=== PATIENT | female | born 1990 | race Caucasian/White ===

== ENCOUNTER 2017-06-25 21:22 | Emergency (ER) | payer OTHER ==
[~2017-06-25] VITALS: Ht 157.5 cm; Wt 73.2 kg
[~2017-06-25 21:22] MED LIST: ACET-1256 PO; INSUINJ34 SC; NITR-5 PO; PRENTAB26 PO; SERT-234 PO
[2017-06-25 21:23] VITALS: TEMP 36.6; Ht 157.5 cm; Wt 73.2 kg
[2017-06-25] MEDS ORDERED: ONDANSETRON INJ 2 MG/ML 2 ML VIAL IV STA (21:30)
[2017-06-25] MEDS ORDERED: KETOROLAC TROMETHAMINE 30 MG/ML VIAL IV STA (21:30)
[2017-06-25] MEDS ORDERED: MoRPHine SULFATE 4 MG/ML 1 ML CARP\\VIAL IV STA ×2 (21:32→23:59)
[2017-06-25 21:55] LABS: BASO % 0.7 %; BASO ABS # 0.05 K/uL (0-0.2); EOS % 2.2 %; HEMATOCRIT 42.7 % (37-47); IG% 0.3 %; LYMPH % 35.6 %; LYMPH ABS # 2.58 K/uL (1.2-3.4); MEAN CELL VOLUME 74.8 fL (80-100); MEAN CORPUSCULAR HEMOGLOBIN 26.1 pg (25-34); MEAN CORPUSCULAR HGB CONC 34.9 g/dl (32-36); MEAN PLATELET VOLUME 9.9 fL (7.4-10.4); MONO % 5.1 %; NEUT % 56.1 %; PLATELET COUNT 241 K/uL (130-400); RED BLOOD COUNT 5.71 M/uL (4.2-5.4); WHITE BLOOD COUNT 7.24 K/uL (4.8-10.8)
[2017-06-25 22:06] LABS: MANUAL MICROSCOPIC REQUIRED? NO; REVIEW REQ? NO; URINE APPEARANCE CLOUDY (CLEAR); URINE BILIRUBIN NEG (NEG); URINE COLOR YELLOW; URINE EPITHELIAL CELL AUTO >30 /lpf (0-5); URINE NITRITE POS (NEG); URINE SPECIFIC GRAVITY 1.031 (1.000-1.030); UROBILINOGEN NEG (NEG); ZZUR CULT IF INDIC CLEAN CATCH YES
[2017-06-25] MEDS ORDERED: ATR25 PO (22:09)
[2017-06-25] MEDS ORDERED: ZLF/100 PO (22:09)
[2017-06-25] MEDS ORDERED: CYM30 PO (22:09)
[2017-06-25] MEDS ORDERED: MEDR150I19 INJ (22:09)
[2017-06-25] MEDS ORDERED: APDI PO (22:09)
[2017-06-25] MEDS ORDERED: IBUP-1050 PO (22:10)
[2017-06-25 22:11] LABS: BLOOD UREA NITROGEN 15 mg/dl (7-18); BUN/CREATININE RATIO 14.8 (10-20); CARBON DIOXIDE 20 mmol/L (21-32); CHLORIDE 104 mmol/L (98-107); CREATININE 1.01 mg/dl (0.60-1.20); GLUCOSE 301 mg/dl (70-99); POTASSIUM 3.7 mmol/L (3.5-5.1); SODIUM 135 mmol/L (136-145)
[2017-06-25 22:15] LABS: COMPLETE YES; MICROCYTOSIS PRESENT
[2017-06-25 22:17] LABS: ALKALINE PHOSPHATASE 124 U/L (45-117); ALT/SGPT 22 U/L (12-78); AST/SGOT 13 U/L (15-37)
[2017-06-25] MEDS ORDERED: CEFTRIAXONE SOD INJ 1 GM ADDVIAL IV STA (22:19)
[2017-06-25 22:24] VITALS: O2SAT 97
[2017-06-25] MEDS ORDERED: LACTATED RINGER'S 1000ML 1,000 ML IV STA (22:49)
[2017-06-26] MEDS ORDERED: PHENAZOPYRIDINE HOME PACK 200 MG VIAL PO ONE (00:45)
[2017-06-26] MEDS ORDERED: OXYCODONE IR HOME PACK PO ONE (00:45)
[2017-06-26] MEDS ORDERED: SEPTRA DS HOME PACK 1 EA VIAL PO ONE (00:45)
[2017-06-26] MEDS ORDERED: PHEN-876 PO (01:05)
[2017-06-26] MEDS ORDERED: SULF800T23 PO (01:05)
[2017-06-26] MEDS ORDERED: ONDANSETRON HOME PACK 4MG OD TAB PO ONE (01:15)
[2017-06-26 01:16] VITALS: BP 124/77; PULSE 110; O2SAT 98
--- NOTE | 2017-06-26 05:45 | EMERGENCY ROOM VISIT NOTE ---
History First contact with patient: 21:26 Chief Complaint: FLANK PAIN Stated Complaint: BACK PAIN History of Present Illness The patient is a 27 year old female who presents to the Emergency Room with complaints of sudden onset of right flank pain that raised her groin describes aching, ranging in severity 6 out of 10. Patient has a history kidney stones and renal failure. she also c/o urinary frequency, dysuria and hematuria. Patient states she's not suppose to take NSAIDs. Patient denies chest pain, dyspnea, fever, chills, vomiting, diarrhea, abdominal pain, cold symptoms. No injury to the area. Review of Systems See HPI for pertinent positives & negatives. A total of 10 systems reviewed and were otherwise negative. Past Medical/Surgical History Medical Problems: (1) BIPOL I, MOST RECENT EPISODE (OR CURRENT) MIXED, UNSPECIFIED (2) CALCULUS OF KIDNEY (3) DIAB W OTH SPEC MANIFEST, TYPE II OR UNSPEC TYPE, NOT UNCNTR (4) FAM HX-DIABETES MELLITUS (5) FAMILY HISTORY OF OTHER CARDIOVASCULAR DISEASES (6) Sinusitis, maxillary, chronic (7) TOBACCO USE DISORDER Family History Diabetes mellitus Heart disease Kidney disease Kidney stones Social History Smoking Status: Current Every Day Smoker Alcohol Use: none Drug Use: none Marital Status: single Housing Status: lives with family Occupation Status: employed Current/Historical Medications Scheduled Duloxetine HCl (Duloxetine HCl), 30 MG PO DAILY Hydroxyzine HCl (Hydroxyzine HCl), 25 MG PO Q8 Insulin Glulisine (Apidra Solostar), 12 UNITS PO TIDM Medroxyprogesterone Acetate (C (Medroxyprogesterone Aceta), INJ UD Phenazopyridine HCl (Pyridium), 200 MG PO TID Sertraline HCl (Sertraline HCl), 200 MG PO DAILY Sulfa/Trimethoprim (Bactrim Ds 800MG/160MG), 1 TAB PO BID Scheduled PRN Ibuprofen (Advil), 400 MG PO TID PRN for Headache or Pain Physical Exam Vital Signs Date Time Temp Pulse Resp B/P (MAP) Pulse Ox O2 Delivery O2 Flow Rate FiO2 06/26/17 01:16 110 17 124/77 98 06/26/17 00:08 85 17 128/87 97 06/25/17 22:58 104 19 127/86 98 06/25/17 22:31 114 06/25/17 22:24 110 16 124/93 98 12/10/17 22:24 97 Room Air 06/25/17 21:23 36.6 126 20 139/91 98 Room Air Physical Exam VITALS: Vitals are noted on the nurse's note and reviewed by myself. Vital signs stable. GENERAL:pleasant female, in no acute distress, nondiaphoretic, well-developed well-nourished. SKIN: The skin was without rashes, erythema, edema, or bruising. There is no tenting of the skin. Capillary reflex less than 2 seconds. HEAD: Normocephalic atraumatic. EARS: External auditory canals clear EYES: Pupils equal round and reactive to light and accommodation. Conjunctivae without injection, sclerae without icterus. Extraocular movements intact. NOSE: Patent, turbinates without inflammation or discharge. MOUTH: Mucous membranes moist. Tonsils are not enlarged. Pharynx without erythema or exudate. Uvula midline. Airway patent. Tongue does not deviate. NECK: Supple without nuchal rigidity. No lymphadenopathy. No thyromegaly. Cervical spine is nontender. No JVD. HEART: Regular rate and rhythm without murmurs gallops or rubs. LUNGS: Clear to auscultation bilaterally without wheezes, rales or rhonchi. No dullness to percussion. No retractions or accessory muscle use. ABDOMEN: Positive bowel sounds x 4. Normal tympanic percussion. Soft, nontender, without masses or organomegaly. Brown sign negative. No guarding or rebound tenderness. right CVA tenderness MUSCULOSKELETAL: No muscle atrophy, erythema, or edema noted. NEURO: Patient was alert and oriented to person place and time. Normal sensation to light and sharp touch. No focal neurological deficits. Medical Decision & Procedures Laboratory Results 06/25/17 21:45 Red Blood Count 5.71, Mean Corpuscular Volume 74.8, Mean Corpuscular Hemoglobin 26.1, Mean Corpuscular Hemoglobin Concent 34.9, Mean Platelet Volume 9.9, Neutrophils (%) (Auto) 56.1, Lymphocytes (%) (Auto) 35.6, Monocytes (%) (Auto) 5.1, Eosinophils (%) (Auto) 2.2, Basophils (%) (Auto) 0.7, Neutrophils # (Auto) 4.06, Lymphocytes # (Auto) 2.58, Monocytes # (Auto) 0.37, Eosinophils # (Auto) 0.16, Basophils # (Auto) 0.05 06/25/17 21:45 Test 06/25/17 21:45 White Blood Count 7.24 K/uL (4.8-10.8) Red Blood Count 5.71 M/uL (4.2-5.4) Hemoglobin 14.9 g/dL (12.0-16.0) Hematocrit 42.7 % (37-47) Mean Corpuscular Volume 74.8 fL (80-100) Mean Corpuscular Hemoglobin 26.1 pg (25-34) Mean Corpuscular Hemoglobin Concent 34.9 g/dl (32-36) Platelet Count 241 K/uL (130-400) Mean Platelet Volume 9.9 fL (7.4-10.4) Neutrophils (%) (Auto) 56.1 % Lymphocytes (%) (Auto) 35.6 % Monocytes (%) (Auto) 5.1 % Eosinophils (%) (Auto) 2.2 % Basophils (%) (Auto) 0.7 % Neutrophils # (Auto) 4.06 K/uL (1.4-6.5) Lymphocytes # (Auto) 2.58 K/uL (1.2-3.4) Monocytes # (Auto) 0.37 K/uL (0.11-0.59) Eosinophils # (Auto) 0.16 K/uL (0-0.5) Basophils # (Auto) 0.05 K/uL (0-0.2) RDW Standard Deviation 40.3 fL (36.4-46.3) RDW Coefficient of Variation 14.9 % (11.5-14.5) Immature Granulocyte % (Auto) 0.3 % Immature Granulocyte # (Auto) 0.02 K/uL (0.00-0.02) Microcytosis PRESENT Urine Color YELLOW Urine Appearance CLOUDY (CLEAR) Urine pH 5.0 (4.5-7.5) Urine Specific [place] 1.031 (1.000-1.030) Urine Protein 2+ (NEG) Urine Glucose (UA) 3+ (NEG) Urine Ketones NEG (NEG) Urine Occult Blood 3+ (NEG) Urine Nitrite POS (NEG) Urine Bilirubin NEG (NEG) Urine Urobilinogen NEG (NEG) Urine Leukocyte Esterase SMALL (NEG) Urine WBC (Auto) >30 /hpf (0-5) Urine RBC (Auto) >30 /hpf (0-4) Urine Hyaline Casts (Auto) 1-5 /lpf (0-5) Urine Epithelial Cells (Auto) >30 /lpf (0-5) Urine Bacteria (Auto) 4+ (NEG) Urine Test NEG (NEG) Anion Gap 11.0 mmol/L (3-11) Est Creatinine Clear Calc Drug Dose 77.7 ml/min Estimated GFR () 87.7 Estimated GFR (Non- 75.7 BUN/Creatinine Ratio 14.8 (10-20) Calcium Level 9.0 mg/dl (8.5-10.1) Total Bilirubin 0.2 mg/dl (0.2-1) Direct Bilirubin < 0.1 mg/dl (0-0.2) Aspartate Amino Transf (AST/SGOT) 13 U/L (15-37) Alanine Aminotransferase (ALT/SGPT) 22 U/L (12-78) Alkaline Phosphatase 124 U/L (45-117) Total Protein 8.0 gm/dl (6.4-8.2) Albumin 3.8 gm/dl (3.4-5.0) Beta-Hydroxybutyric Acid 4.60 mg/dL (0.2-2.81) Medications Administered Medications (Trade) Dose Ordered Sig/Unique Route Start Time Stop Time Status Last Admin Dose Admin Ondansetron HCl (Zofran Inj) 4 mg NOW STAT IV 06/25/17 21:30 06/25/17 21:32 DC 06/25/17 22:19 4 MG Morphine Sulfate (MoRPHine SULFATE INJ) 4 mg NOW STAT IV 06/25/17 21:32 06/25/17 21:33 DC 06/25/17 22:18 4 MG Ceftriaxone Sodium (Rocephin Inj) 1 gm NOW STAT IV 06/25/17 22:19 06/25/17 22:20 DC 06/25/17 23:04 1 GM Lactated Ringer's 1,000 ml @ 0 mls/hr Q0M STAT IV 06/25/17 22:49 06/25/17 22:50 DC 06/25/17 23:58 125 MLS/HR Morphine Sulfate (MoRPHine SULFATE INJ) 4 mg NOW STAT IV 06/25/17 23:59 06/26/17 00:00 DC 06/26/17 00:05 4 MG Phenazopyridine HCl (Phenazopyridine HCl 200MG Home Pack) 1 homepack UD ONCE PO 06/26/17 00:45 06/26/17 00:46 DC 06/26/17 01:14 1 HOMEPACK Trimethoprim/ Sulfamethoxazole (Sulfameth/ Trimeth Ds 800/ 160MG Home Pack) 1 homepack UD ONCE PO 06/26/17 00:45 06/26/17 00:46 DC 06/26/17 01:14 1 HOMEPACK Oxycodone HCl (Roxicodone Immediate Rel 5MG Home Pack) 1 homepack UD ONCE PO 06/26/17 00:45 06/26/17 00:46 DC 06/26/17 01:14 1 HOMEPACK Ondansetron HCl (ZOFRAN ODT 4MG Home Pack) 1 homepack UD ONCE PO 06/26/17 01:15 06/26/17 01:16 DC 06/26/17 01:14 1 HOMEPACK ED Course Prior records/ancillary studies reviewed. Triage Nursing notes reviewed. Additional history obtained from the family. The patient's history was concerning for right flanke pain. Differential diagnosis: Etiologies such as renal colic, appendicitis, diverticulitis, mesenteric ischemia, aortic pathology, infections, inflammatory bowel disease, PUD, biliary pathology, UTI, as well as others were entertained. Physical examination findings: As above. ER treatment provided: Morphine, Zofran, Rocephin On reassessment the patient felt better. Diagnostic interpretation by me: The labs revealed no leukocytosis. Hyperglycemia without DKA. Urine concerning for infection and sent for culture. Imaging studies: USUS RENAL: The kidneys appear normal in size and echogenicity without hydronephrosis, evidence of renal stone or perinephric edema Bilateral ureteral jets are seen Spleen measures 12.4 cm Radiologist: Jaylen Choi M.D. It appears that the patient has pyelonephritis. She was offered admission and declined. She was started on antibiotics. She was advised to take medications as directed and drink plenty of fluids. She is advised follow-up with family care in a day or 2 or here in the ER sooner for high fevers, vomiting, worsening signs or symptoms or as needed. She is advised to monitor her blood sugars. By the evaluation outlined above emergent etiologies such as appendicitis, diverticulitis, mesenteric ischemia, aortic pathology, inflammatory bowel disease, PUD, biliary pathology, as well as others were deemed relatively unlikely. The pt informed about the findings as listed above. All questions were answered and pleased with the treatment. Return instructions were outlined and the patient was discharged in stable condition. Outpatient prescription management: Bactrim, Pyridium Referral: The patient was referred back to their primary care physician for follow-up in 2 to 3 days for a recheck of the current condition. case reviewed with my Attending The chart was completed utilizing [employer] voice recognition software. Grammatical errors, random word insertions, pronoun errors, and incomplete sentences are an occassional consequence of this system due to software limitations, ambient noise, and hardware issues. Any formal questions or concerns about the content, text, or information contained within the body of this dictation should be directly addressed to the physician child and youth program assistant for clarification. Medical Decision as above Medication Reconcilliation Current Medication List: was personally reviewed by me Blood Pressure Screening Patient's blood pressure: Normal blood pressure Impression Primary Impression: Pyelonephritis Additional Impression: Diabetes mellitus with hyperglycemia Departure Information Dispostion Home / Self-Care Condition GOOD Prescriptions Sulfa/Trimethoprim (Bactrim Ds 800MG/160MG) Tab 1 TAB PO BID for 7 Days, #14 TAB Prov: Rima Joyner PA-C 06/26/17 Phenazopyridine HCl (Pyridium) 200 Mg Tab 200 MG PO TID for 2 Days, #6 TAB Prov: Rima Joyner PA-C 06/26/17 Referrals Francine Rankin M.D. (PCP) Patient Instructions My [facility] Problem Qualifiers
--- NOTE | 2017-06-26 07:00 | DIAGNOSTIC IMAGING REPORT ---
(RENAL)RETROPERITON COMP HISTORY: Flank pain right flank, ? stone COMPARISON: 10/12/2014 FINDINGS: Right kidney: Maximum dimension 10.4 cm. No evidence for hydronephrosis. Normal corticomedullary differentiation and cortical thickness. Left kidney: Maximum dimension 9.7 cm. No evidence for hydronephrosis. Normal corticomedullary differentiation and cortical thickness. Bladder: No bladder wall thickening. The bilateral ureteral jets were identified. IMPRESSION: Normal renal ultrasound. Incidental note is made of slight prominence of the spleen at 12 cm The above report was generated using voice recognition software. It may contain grammatical, syntax or spelling errors. Electronically signed by: Herbert Parsons M.D. 06/26/2017 6:59 AM Dictated Date/Time: 06/26/2017 6:58 AM
[2017-06-27] MEDS ORDERED: CIPR1TAB10 PO (09:29)
--- NOTE | 2017-06-27 10:57 | Pharmacy Progress Note ---
ED Pharmacist Culture FollowUp Date of Service: Jun 27, 2017. Patient initially sent home with Bactrim and returned later the same day 06/26 and was admitted. Received 1x dose of rocephin and discharged 06/27 with prescription for ciprofloxacin 500 mg BID X 9 days which should cover the E. coli growing from the patient's urine culture.
== END 2017-06-26 01:16 | disposition home or self-care (01) ==
LOC: C.EDB 21:22 → C.EDA 06-26 01:16
DX: N12 Tubulo-interstitial nephritis, not specified as acute or chronic (principal); E11.65 Type 2 diabetes mellitus with hyperglycemia; F17.200 Nicotine dependence, unspecified, uncomplicated; Z87.442 Personal history of urinary calculi; Z83.3 Family history of diabetes mellitus; Z84.1 Family history of disorders of kidney and ureter

== ENCOUNTER 2017-06-26 22:47 | Observation (INO) | payer OTHER ==
[~2017-06-26] VITALS: Ht 157.5 cm; Wt 80.0 kg
[~2017-06-26 22:47] MED LIST changes: -ACET-1256 PO; +APDI PO; +ATR25 PO; +CYM30 PO; +IBUP-1050 PO; -INSUINJ34 SC; +MEDR150I19 INJ; -NITR-5 PO; +PHEN-876 PO; -PRENTAB26 PO; -SERT-234 PO; +SULF800T23 PO; +ZLF/100 PO
[2017-06-26] MEDS ORDERED: SODIUM CHLORIDE 0.9% 1000ML 1,000 ML IV STA (23:05)
[2017-06-26] MEDS ORDERED: HYDROmorphone INJ 1 MG/ML SYR IV STA (23:05)
[2017-06-26] MEDS ORDERED: ONDANSETRON INJ 2 MG/ML 2 ML VIAL IV STA (23:05)
[2017-06-26] MEDS ORDERED: CEFTRIAXONE SOD INJ 1 GM ADDVIAL IV STA (23:10)
--- NOTE | 2017-06-26 23:18 | EMERGENCY ROOM VISIT NOTE ---
History Report prepared by Sandy: Coco Mathews Under the Supervision of: Dr. Guido Tafoya M.D. First contact with patient: 22:58 Chief Complaint: FLANK PAIN Stated Complaint: KIDNEY INFECTION - REVISIT FROM YESTERDAY History of Present Illness The patient is a 27 year old female who presents to the Emergency Room with complaints of worsening flank pain starting yesterday. The patient states that she had a bad UTI a few months ago. She reports that she came to the ED yesterday for the pain. She states that she tried taking the Peridium with no relief. She complains of back pain, abdominal pain, and nausea. She currently rates her pain as an 8/10 in severity. The patient denies burning with urination and a rash. She notes that she hasn't checked her sugars today, but they were high last night. The patient notes a history of kidney stones and kidney failure. She notes that she was on dialysis in 2014 and the failure was from necrotizing fasciitis on her upper thigh. Source of History: patient Onset: yesterday Position: other (flank pain) Symptom Intensity: 8/10 Timing: worsening Associated Symptoms: + nausea, + abdominal pain, + back pain, No rash Note: The patient denies burning with urination. Review of Systems See HPI for pertinent positives & negatives. A total of 10 systems reviewed and were otherwise negative. Past Medical & Surgical Medical Problems: (1) BIPOL I, MOST RECENT EPISODE (OR CURRENT) MIXED, UNSPECIFIED (2) CALCULUS OF KIDNEY (3) DIAB W OTH SPEC MANIFEST, TYPE II OR UNSPEC TYPE, NOT UNCNTR (4) FAM HX-DIABETES MELLITUS (5) FAMILY HISTORY OF OTHER CARDIOVASCULAR DISEASES (6) Hx of necrotising fasciitis (7) Kidney failure (8) Kidney stones (9) Right-sided back pain (10) Sinusitis, maxillary, chronic (11) TOBACCO USE DISORDER Family History Diabetes mellitus Heart disease Kidney disease Kidney stones Social History Smoking Status: Current Every Day Smoker Alcohol Use: none Drug Use: none Marital Status: single Housing Status: lives with family Occupation Status: employed Current/Historical Medications Scheduled Duloxetine HCl (Duloxetine HCl), 30 MG PO DAILY Hydroxyzine HCl (Hydroxyzine HCl), 25 MG PO Q8 Insulin Glulisine (Apidra Solostar), 12 UNITS PO TIDM Medroxyprogesterone Acetate (C (Medroxyprogesterone Aceta), INJ UD Phenazopyridine HCl (Pyridium), 200 MG PO TID Sertraline HCl (Sertraline HCl), 200 MG PO DAILY Sulfa/Trimethoprim (Bactrim Ds 800MG/160MG), 1 TAB PO BID Scheduled PRN Ibuprofen (Advil), 400 MG PO TID PRN for Headache or Pain Allergies Coded Allergies: Tramadol (Verified Adverse Reaction, Mild, GI SYMPTOMS, 06/26/17) Erythromycin (Verified Adverse Reaction, Unknown, VOMITING, 06/26/17) Physical Exam Vital Signs Date Time Temp Pulse Resp B/P (MAP) Pulse Ox O2 Delivery O2 Flow Rate FiO2 06/27/17 01:17 Room Air 06/27/17 01:15 78 20 121/82 96 Room Air 06/26/17 23:57 93 22 130/70 96 Room Air 06/26/17 22:49 37.1 110 24 133/79 98 Room Air Physical Exam GENERAL: Patient is uncomfortable appearing and in moderate distress. Writhing on bed. HEENT: No acute trauma, normocephalic atraumatic, mucous membranes moist, no nasal congestion, no scleral icterus. NECK: No stridor, no adenopathy, no meningismus, trachea is midline. LUNGS: No dyspnea. Clear to auscultation and equal bilaterally. No wheeze, no rhonchi. HEART: Tachycardic rate and regular rhythm. No murmurs, rubs, gallops appreciated. ABDOMEN: Soft,diffuse tenderness over entire abdomen, no rebound, bowel sounds positive, no masses appreciated, no peritonitis. BACK: No midline tenderness, bilateral CVA tenderness to palpation EXTREMITIES: Normal motion all extremities, no cyanosis, no edema. NEUROLOGIC: Alert and oriented, no acute motor or sensory deficits, no focal weakness, cranial nerves grossly intact. SKIN: No rash, no jaundice, no diaphoresis. Medical Decision & Procedures ER Provider Diagnostic Interpretation: Radiology results and stated below per my review and radiologist interpretation: CT ABDOMEN & PELVIS Without Contrast: Nonobstructing left renal stone. No hydronephrosis or perinephric collections. Unremarkable appendix. No colitis or bowel obstruction. No radiodense gallstones or pancreatitis. Small nodule in the soft tissues of the back. Radiologist: Manal Schoellerman, M.D. Study ready at 23:59 and initial results transmitted at 00:23. Laboratory Results 06/26/17 23:10 Red Blood Count 5.60, Mean Corpuscular Volume 75.5, Mean Corpuscular Hemoglobin 26.4, Mean Corpuscular Hemoglobin Concent 35.0, Mean Platelet Volume 9.8, Neutrophils (%) (Auto) 54.2, Lymphocytes (%) (Auto) 35.4, Monocytes (%) (Auto) 6.3, Eosinophils (%) (Auto) 3.0, Basophils (%) (Auto) 0.7, Neutrophils # (Auto) 3.79, Lymphocytes # (Auto) 2.48, Monocytes # (Auto) 0.44, Eosinophils # (Auto) 0.21, Basophils # (Auto) 0.05 06/26/17 23:10 Test 06/26/17 23:10 06/26/17 23:12 06/26/17 23:19 06/26/17 23:22 White Blood Count 7.00 K/uL (4.8-10.8) Red Blood Count 5.60 M/uL (4.2-5.4) Hemoglobin 14.8 g/dL (12.0-16.0) Hematocrit 42.3 % (37-47) Mean Corpuscular Volume 75.5 fL (80-100) Mean Corpuscular Hemoglobin 26.4 pg (25-34) Mean Corpuscular Hemoglobin Concent 35.0 g/dl (32-36) Platelet Count 226 K/uL (130-400) Mean Platelet Volume 9.8 fL (7.4-10.4) Neutrophils (%) (Auto) 54.2 % Lymphocytes (%) (Auto) 35.4 % Monocytes (%) (Auto) 6.3 % Eosinophils (%) (Auto) 3.0 % Basophils (%) (Auto) 0.7 % Neutrophils # (Auto) 3.79 K/uL (1.4-6.5) Lymphocytes # (Auto) 2.48 K/uL (1.2-3.4) Monocytes # (Auto) 0.44 K/uL (0.11-0.59) Eosinophils # (Auto) 0.21 K/uL (0-0.5) Basophils # (Auto) 0.05 K/uL (0-0.2) RDW Standard Deviation 41.2 fL (36.4-46.3) RDW Coefficient of Variation 14.9 % (11.5-14.5) Immature Granulocyte % (Auto) 0.4 % Immature Granulocyte # (Auto) 0.03 K/uL (0.00-0.02) Prothrombin Time 9.4 SECONDS (9.0-12.0) Prothromb Time International Ratio 0.9 (0.9-1.1) Est Creatinine Clear Calc Drug Dose 69.1 ml/min Estimated GFR () 72.7 Estimated GFR (Non- 62.7 BUN/Creatinine Ratio 12.2 (10-20) Calcium Level 8.8 mg/dl (8.5-10.1) Magnesium Level 1.9 mg/dl (1.8-2.4) Total Bilirubin 0.2 mg/dl (0.2-1) Direct Bilirubin < 0.1 mg/dl (0-0.2) Aspartate Amino Transf (AST/SGOT) 8 U/L (15-37) Alanine Aminotransferase (ALT/SGPT) 22 U/L (12-78) Alkaline Phosphatase 154 U/L (45-117) Total Creatine Kinase 31 U/L (26-192) Creatine Kinase MB < 0.5 ng/ml (0.5-3.6) Creatine Kinase MB Ratio (0-3.0) Troponin I < 0.015 ng/ml (0-0.045) Total Protein 7.8 gm/dl (6.4-8.2) Albumin 3.6 gm/dl (3.4-5.0) Beta-Hydroxybutyric Acid 1.23 mg/dL (0.2-2.81) Procalcitonin < 0.05 ng/ml (0-0.5) Urine Color RED Urine Appearance CLOUDY (CLEAR) Urine pH 7.0 (4.5-7.5) Urine Specific [place] 1.027 (1.000-1.030) Urine Protein NEG (NEG) Urine Glucose (UA) 3+ (NEG) Urine Ketones NEG (NEG) Urine Occult Blood 3+ (NEG) Urine Nitrite NEG (NEG) Urine Bilirubin NEG (NEG) Urine Urobilinogen NEG (NEG) Urine Leukocyte Esterase TRACE (NEG) Urine WBC (Auto) 10-30 /hpf (0-5) Urine RBC (Auto) >30 /hpf (0-4) Urine Hyaline Casts (Auto) 1-5 /lpf (0-5) Urine Epithelial Cells (Auto) >30 /lpf (0-5) Urine Bacteria (Auto) NEG (NEG) Urine Test NEG (NEG) Bedside Lactic Acid Venous 1.62 mmol/L (0.90-1.70) Bedside Hemoglobin 13.6 g/dl (12.0-16.0) Bedside Hematocrit 40 % (37-47) Bedside Sodium 137 mEq/L (135-144) Bedside Potassium 4.1 mEq/L (3.3-5.0) Bedside Chloride 103 mEq/L (101-112) Bedside Total CO2 23 mEq/l (24-31) Anion Gap 17.0 mmol/L (16-25) Bedside Blood Urea Nitrogen 14 mg/dl (7-18) Bedside Creatinine 0.9 mg/dl (0.6-1.3) Bedside Glucose (other) 430 mg/dl (70-99) Bedside Ionized Calcium ([place]) 1.17 mmol/l (1.12-1.32) Laboratory results as reviewed by me. Medications Administered Medications (Trade) Dose Ordered Sig/Unique Route Start Time Stop Time Status Last Admin Dose Admin Sodium Chloride 1,000 ml @ 999 mls/hr Q1H1M STAT IV 06/26/17 23:05 06/27/17 00:05 DC 06/26/17 23:28 999 MLS/HR Hydromorphone HCl (Dilaudid Inj) 1 mg NOW STAT IV 06/26/17 23:05 06/26/17 23:07 DC 06/26/17 23:30 1 MG Ondansetron HCl (Zofran Inj) 4 mg NOW STAT IV 06/26/17 23:05 06/26/17 23:07 DC 06/26/17 23:28 4 MG Ceftriaxone Sodium (Rocephin Inj) 1 gm NOW STAT IV 06/26/17 23:10 06/26/17 23:11 DC 06/26/17 23:38 1 GM Insulin Human Regular (novoLIN-R U-100 PER UNIT) 6 units NOW STAT IV 06/26/17 23:37 06/26/17 23:38 DC 06/26/17 23:57 6 UNITS ECG Indication: back/shoulder pain Rate (beats per minute): 91 Rhythm: normal sinus Findings: no acute ischemic change, no ectopy ED Course 2300: The patient was evaluated in room B9. A complete history and physical exam was performed. Review of the patient's chart reveals that on May of 2016 she had an Ecolid UTI that was Bactrim and Ampicillin resistant, but otherwise pansensitive. 2305: Ordered Zofran Inj 4 mg IV, Dilaudid Inj 1 mg IV, NSS 1000 ml @ 999 mls/ hr IV. 2310: Ordered Rocephin Inj 1 gm IV. 2337: Ordered Insulin Human Regular 6 units IV. 0004: I reevaluated the patient and she is feeling better. She is agreeable to admission. 0025: Discussed the patient's case with Dr. Rogers. The patient will be evaluated for further treatment and disposition. Medical Decision Differential: UTI, Urethritis, Pyelonephritis, STI, Herpetic, Vaginitis, Hyperglycemia, Yeast, PID, Cystitis, Hemorrhagic Cystitis, amongst other pathologies entertained. 27 yr old female with 2 days bilateral flank pain, urinary burning and fatigue. Seen yesterday diagnosed with pyelo and refused admission at that time. Uncontrolled DMI with previous septic shock, intubation from infections. Previous Ecoli UTI in last few years susceptible to Rocephin. Returns today with continued symptoms and now vomiting. BG continues to rise. Pain controlled with above. UA is clearing though Ucx already growing gram neg. Given Rocephin post cultures/lactic. She is not in dka. She is not septic shock and does not at this time meet sepsis criteria. Given brittle diabetic who is uncontrolled with UTI and second visit in 2 days for pyelo, will need to come in for management. Medication Reconcilliation Current Medication List: was personally reviewed by me Blood Pressure Screening Patient's blood pressure: Normal blood pressure Blood pressure disposition: Did not require urgent referral Consults Time Called: 18 Consulting Physician: Dr. Rogers Returned Call: 24 Discussed the patient's case with Dr. Rogers. The patient will be evaluated for further treatment and disposition. Impression Primary Impression: Pyelonephritis Additional Impressions: Hyperglycemia Failure of outpatient treatment Scribe Attestation The scribe's documentation has been prepared under my direction and personally reviewed by me in its entirety. I confirm that the note above accurately reflects all work, treatment, procedures, and medical decision making performed by me. Departure Information Dispostion Being Evaluated By Hospitalist Referrals No Doctor, Assigned (PCP) Patient Instructions My [facility] Problem Qualifiers
[2017-06-26 23:28] LABS: BASO % 0.7 %; BASO ABS # 0.05 K/uL (0-0.2); COMPLETE YES; HEMATOCRIT 42.3 % (37-47); IG% 0.4 %; LYMPH % 35.4 %; LYMPH ABS # 2.48 K/uL (1.2-3.4); MEAN CELL VOLUME 75.5 fL (80-100); MEAN CORPUSCULAR HEMOGLOBIN 26.4 pg (25-34); MEAN PLATELET VOLUME 9.8 fL (7.4-10.4); MONO % 6.3 %; NEUT % 54.2 %; PLATELET COUNT 226 K/uL (130-400)
[2017-06-26 23:35] LABS: ISTAT CREATININE 0.9 mg/dl (0.6-1.3); ISTAT HEMOGLOBIN 13.6 g/dl (12.0-16.0); ISTAT IONIZED CALCIUM 1.17 mmol/l (1.12-1.32)
[2017-06-26] MEDS ORDERED: NovoLIN-R INSULIN PER UNIT CHARGE IV STA (23:37)
[2017-06-26 23:41] LABS: INR 0.9 (0.9-1.1); PROTHROMBIN TIME (PATIENT) 9.4 SECONDS (9.0-12.0)
[2017-06-26 23:41] LABS: MANUAL MICROSCOPIC REQUIRED? NO; URINE APPEARANCE CLOUDY (CLEAR); URINE BILIRUBIN NEG (NEG); URINE COLOR RED; URINE EPITHELIAL CELL AUTO >30 /lpf (0-5); URINE NITRITE NEG (NEG); URINE SPECIFIC GRAVITY 1.027 (1.000-1.030); UROBILINOGEN NEG (NEG); ZZUR CULT IF INDIC CLEAN CATCH YES
[2017-06-27 00:12] LABS: ALKALINE PHOSPHATASE 154 U/L (45-117); ALT/SGPT 22 U/L (12-78); BLOOD UREA NITROGEN 14 mg/dl (7-18); BUN/CREATININE RATIO 12.2 (10-20); CALCIUM 8.8 mg/dl (8.5-10.1); CARBON DIOXIDE 23 mmol/L (21-32); CHLORIDE 103 mmol/L (98-107); CREATININE 1.18 mg/dl (0.60-1.20); GLUCOSE 433 mg/dl (70-99)
[2017-06-27 00:18] LABS: POTASSIUM 4.2 mmol/L (3.5-5.1); SODIUM 135 mmol/L (136-145)
[2017-06-27 00:31] LABS: AST/SGOT 8 U/L (15-37); BETA-HYDROXYBUTYRATE 1.23 mg/dL (0.2-2.81); MAGNESIUM 1.9 mg/dl (1.8-2.4)
[2017-06-27 01:17] VITALS: BMI 32.3
[2017-06-27] MEDS ORDERED: IBUPROFEN 200 MG TAB PO PRN (01:30)
[2017-06-27] MEDS ORDERED: ACETAMINOPHEN 325 MG TAB PO PRN (01:30)
[2017-06-27] MEDS ORDERED: POLYETHYLENE (MIRALAX) 17 GM PACK PO PRN (01:30)
[2017-06-27] MEDS ORDERED: ONDANSETRON INJ 2 MG/ML 2 ML VIAL IV PRN (01:30)
[2017-06-27] MEDS ORDERED: ALUMINUM/MAGNESIUM/SIMETH (MAALOX MAX) 30 ML UDC PO PRN (01:30)
[2017-06-27] MEDS ORDERED: ACETAMINOPHEN IV 100 ML IV PRN (01:30)
[2017-06-27] MEDS ORDERED: MAGNESIUM HYDROXIDE SUSP 30 ML UDC PO PRN (01:30)
[2017-06-27] MEDS ORDERED: ACETAMINOPHEN 1000 MG/100 ML IV IV ONE (01:33)
--- NOTE | 2017-06-27 01:48 | History and Physical ---
History & Physical Date & Time of Service: Jun 27, 2017 at 01:28 Chief Complaint: Kidney Infection - Revisit From Yesterday Primary Care Physician: No Doctor, Assigned History of Present Illness Source: patient, hospital records This is a 27 yo f with a history of bipolar and DMI that is presenting to us with worsening right sided flank pain. The patient was seen by ED yesterday as she was suffering from right sided flank pain and change in urine odour/ colour. She was evaluated and found to have a UTI and was d/c with Pyridium and Bactrim. Over the past 24 hours she has had intensifying right flank pain which extend to the right anterior abd. The pain is currently a 7/10 and sharp. Worse with any movement. She denies any dysuria or fever. During the last 24 hours she has not been checking her sugars and they were found to be elevated. Past Medical/Surgical History Medical Problems: (1) BIPOL I, MOST RECENT EPISODE (OR CURRENT) MIXED, UNSPECIFIED Status: Chronic (2) CALCULUS OF KIDNEY Status: Chronic (3) DIAB W OTH SPEC MANIFEST, TYPE II OR UNSPEC TYPE, NOT UNCNTR Status: Chronic (4) FAM HX-DIABETES MELLITUS Status: Chronic (5) FAMILY HISTORY OF OTHER CARDIOVASCULAR DISEASES Status: Chronic (6) Sinusitis, maxillary, chronic Status: Chronic (7) TOBACCO USE DISORDER Status: Chronic Family History Diabetes mellitus Heart disease Kidney disease Kidney stones Social History Smoking Status: Current Every Day Smoker Smokeless Tobacco Use: No Alcohol Use: socially Drug Use: none Marital Status: single Housing status: lives with family Occupational Status: employed Immunizations History of Influenza Vaccine: No History of Tetanus Vaccine?: Unknown History of Pneumococcal: No History of Hepatitis B Vaccine: Yes Multi-Drug Resistant Organisms History of MDRO: No Allergies Coded Allergies: Tramadol (Verified Adverse Reaction, Mild, GI SYMPTOMS, 06/26/17) Erythromycin (Verified Adverse Reaction, Unknown, VOMITING, 06/26/17) Home Medications Scheduled Duloxetine HCl (Duloxetine HCl), 30 MG PO DAILY Hydroxyzine HCl (Hydroxyzine HCl), 25 MG PO Q8 Insulin Glulisine (Apidra Solostar), 12 UNITS PO TIDM Medroxyprogesterone Acetate (C (Medroxyprogesterone Aceta), INJ UD Phenazopyridine HCl (Pyridium), 200 MG PO TID Sertraline HCl (Sertraline HCl), 200 MG PO DAILY Sulfa/Trimethoprim (Bactrim Ds 800MG/160MG), 1 TAB PO BID Scheduled PRN Ibuprofen (Advil), 400 MG PO TID PRN for Headache or Pain Review of Systems Constitutional: No fever, No chills, No sweats Eyes: No worsening of vision ENT: No hearing loss Respiratory: No cough, No sputum, No wheezing, No shortness of breath, No dyspnea on exertion, No dyspnea at rest Cardiovascular: No chest pain Abdomen: No pain, No nausea, No vomiting, No diarrhea, No constipation Musculoskeletal: + problem reported, No joint pain, No muscle pain Genitourinary - Female: No dysuria, No hematuria Neurologic: No weakness, No balance problems Psychiatric: No depression symptoms Endocrine: No fatigue Hematologic / Lymphatic: No abnormal bleeding/bruising Integumentary: No rash Physical Exam Vital Signs Date Time Temp Pulse Resp B/P (MAP) Pulse Ox O2 Delivery O2 Flow Rate FiO2 06/27/17 01:15 78 20 121/82 96 Room Air 06/26/17 23:57 93 22 130/70 96 Room Air 06/26/17 22:49 37.1 110 24 133/79 98 Room Air General Appearance: no apparent distress Head: normocephalic, atraumatic Eyes: normal inspection ENT: normal ENT inspection Neck: supple Respiratory/Chest: normal breath sounds, no respiratory distress, no accessory muscle use Cardiovascular: regular rate, rhythm, no murmur, normal peripheral pulses Abdomen/GI: normal bowel sounds, non tender, soft Back: normal inspection Neurologic/Psych: alert, normal mood/affect, oriented x 3 Skin: normal color, warm/dry, no rash Diagnostics Laboratory Results Results Past 24 Hours Test 06/26/17 23:10 06/26/17 23:12 06/26/17 23:19 06/26/17 23:22 Range/Units White Blood Count 7.00 4.8-10.8 K/uL Red Blood Count 5.60 4.2-5.4 M/uL Hemoglobin 14.8 12.0-16.0 g/dL Hematocrit 42.3 37-47 % Mean Corpuscular Volume 75.5 80-100 fL Mean Corpuscular Hemoglobin 26.4 25-34 pg Mean Corpuscular Hemoglobin Concent 35.0 32-36 g/dl Platelet Count 226 130-400 K/uL Mean Platelet Volume 9.8 7.4-10.4 fL Neutrophils (%) (Auto) 54.2 % Lymphocytes (%) (Auto) 35.4 % Monocytes (%) (Auto) 6.3 % Eosinophils (%) (Auto) 3.0 % Basophils (%) (Auto) 0.7 % Neutrophils # (Auto) 3.79 1.4-6.5 K/uL Lymphocytes # (Auto) 2.48 1.2-3.4 K/uL Monocytes # (Auto) 0.44 0.11-0.59 K/uL Eosinophils # (Auto) 0.21 0-0.5 K/uL Basophils # (Auto) 0.05 0-0.2 K/uL RDW Standard Deviation 41.2 36.4-46.3 fL RDW Coefficient of Variation 14.9 11.5-14.5 % Immature Granulocyte % (Auto) 0.4 % Immature Granulocyte # (Auto) 0.03 0.00-0.02 K/uL Prothrombin Time 9.4 9.0-12.0 SECONDS Prothromb Time International Ratio 0.9 0.9-1.1 Sodium Level 135 136-145 mmol/L Potassium Level 4.2 3.5-5.1 mmol/L Chloride Level 103 98-107 mmol/L Carbon Dioxide Level 23 21-32 mmol/L Anion Gap 9.0 17.0 16-25 mmol/L Blood Urea Nitrogen 14 7-18 mg/dl Creatinine 1.18 0.60-1.20 mg/dl Est Creatinine Clear Calc Drug Dose 69.1 ml/min Estimated GFR () 72.7 Estimated GFR (Non- 62.7 BUN/Creatinine Ratio 12.2 10-20 Random Glucose 433 70-99 mg/dl Calcium Level 8.8 8.5-10.1 mg/dl Magnesium Level 1.9 1.8-2.4 mg/dl Total Bilirubin 0.2 0.2-1 mg/dl Direct Bilirubin < 0.1 0-0.2 mg/dl Aspartate Amino Transf (AST/SGOT) 8 15-37 U/L Alanine Aminotransferase (ALT/SGPT) 22 12-78 U/L Alkaline Phosphatase 154 45-117 U/L Total Creatine Kinase 31 26-192 U/L Creatine Kinase MB < 0.5 0.5-3.6 ng/ml Creatine Kinase MB Ratio 0-3.0 Troponin I < 0.015 0-0.045 ng/ml Total Protein 7.8 6.4-8.2 gm/dl Albumin 3.6 3.4-5.0 gm/dl Beta-Hydroxybutyric Acid 1.23 0.2-2.81 mg/dL Procalcitonin < 0.05 0-0.5 ng/ml Urine Color RED Urine Appearance CLOUDY CLEAR Urine pH 7.0 4.5-7.5 Urine Specific [place] 1.027 1.000-1.030 Urine Protein NEG NEG Urine Glucose (UA) 3+ NEG Urine Ketones NEG NEG Urine Occult Blood 3+ NEG Urine Nitrite NEG NEG Urine Bilirubin NEG NEG Urine Urobilinogen NEG NEG Urine Leukocyte Esterase TRACE NEG Urine WBC (Auto) 10-30 0-5 /hpf Urine RBC (Auto) >30 0-4 /hpf Urine Hyaline Casts (Auto) 1-5 0-5 /lpf Urine Epithelial Cells (Auto) >30 0-5 /lpf Urine Bacteria (Auto) NEG NEG Urine Test NEG NEG Bedside Lactic Acid Venous 1.62 0.90-1.70 mmol/L Bedside Hemoglobin 13.6 12.0-16.0 g/dl Bedside Hematocrit 40 37-47 % Bedside Sodium 137 135-144 mEq/L Bedside Potassium 4.1 3.3-5.0 mEq/L Bedside Chloride 103 101-112 mEq/L Bedside Total CO2 23 24-31 mEq/l Bedside Blood Urea Nitrogen 14 7-18 mg/dl Bedside Creatinine 0.9 0.6-1.3 mg/dl Bedside Glucose (other) 430 70-99 mg/dl Bedside Ionized Calcium ([place]) 1.17 1.12-1.32 mmol/l Test 06/27/17 00:34 Range/Units Bedside Glucose 265 70-90 mg/dl Microbiology Results 06/26/17 Blood Culture, Received Pending 06/26/17 Blood Culture, Received Pending Diagnostic Radiology CT ABDOMEN & PELVIS Without Contrast: Nonobstructing left renal stone. No hydronephrosis or perinephric collections. Unremarkable appendix. No colitis or bowel obstruction. No radiodense gallstones or pancreatitis. Small nodule in the soft tissues of the back. EKG NSR, no ischemic changes, no ectopy Impression Assessment and Plan This is a 27 yo f with DMI and bipolar failing outpatient management for UTI/ pyelo Failure of outpatient mx of right flank pain secondary to urinary infection - med surg obs - NSS @ 125 cc/h - Tylenol and Ibuprofen for pain control, NO narcotics - Rocephin - recheck BMP in am DMI- poorly controlled - Improved with 6 units - Continue sliding scale with Apidra and augment accordingly - DM consult Bipolar disorder - continue duloxetine 30 mg, hydroxyzine 25 mg q8h, Sertraline 200 mg DVT prophylaxis SCD Attending addendum: I have physically seen this patient, have supervised the medical residents activities, and agree with the H&P unless as otherwise noted. Assessment and Plan: UTI/failure of outpatient treatment/right flank pain/left sided stone-- Patient had been seen in the ED the previous night, was sent home on oral antibiotics, he returns ED tonight for admission Ceftriaxone 1 g IV daily Has been seen by Dr. Fletcher for acute kidney failure in the past Follow urine culture and sensitivities from the previous evening Rehydrate with IV fluids Diabetes mellitus uncontrolled-- Given 6 units of regular insulin IV in the ED Continue Apidra and fluids Check a hemoglobin A1c Bipolar disorder Continue duloxetine, sertraline and hydroxyzine. Level of Care Med/Surg Advanced Directives Existing Advance Directive: No Existing Living Will: No Existing Power of Director Biologics: No Resuscitation Status FULL RESUSCITATION VTE Prophylaxis VTE Risk Assessment Done? Y/N: Yes Risk Level: Moderate Given or contraindicated: SCD's Social Service Consult None Apply Note Total Time: Critical Care 30 - 74 minutes
[2017-06-27 02:17] VITALS: BP 103/68; PULSE 86; TEMP 36.6; O2SAT 98
[2017-06-27] MEDS: SODIUM CHLORIDE 0.9% 1000ML 1,000 ML IV SCH ×2 (02:25→10:30)
[2017-06-27] MEDS ORDERED: DEXTROSE 50% 50 ML SYR IV PRN (02:30)
[2017-06-27] MEDS ORDERED: GLUCOSE 40% GEL 15 GM TUBE PO PRN (02:30)
[2017-06-27] MEDS ORDERED: GLUCAGON FOR INJ 1 MG VIAL SQ PRN (02:30)
[2017-06-27] MEDS ORDERED: GLUCOSE 10 TABS/TUBE PO PRN (02:30)
[2017-06-27 05:32] LABS: REVIEW REQ? NO
[2017-06-27] MEDS ORDERED: hydrOXYzine HCL 25 MG TAB PO SCH (06:00)
--- NOTE | 2017-06-27 06:36 | DIAGNOSTIC IMAGING REPORT ---
CT SCAN OF THE ABDOMEN AND PELVIS WITHOUT CONTRAST CLINICAL HISTORY: bilateral flank pain, UTI, h/o stones COMPARISON STUDY: 11/28/2011 TECHNIQUE: CT scan of the abdomen and pelvis was performed from the lung bases to the proximal femurs. Images are reviewed in the axial, sagittal, and coronal planes. IV contrast was not administered for this examination. A dose lowering technique was utilized adhering to the principles of ALARA. CT DOSE: 1671.47 mGy.cm FINDINGS: Lower chest: The heart is normal in size and configuration, without pericardial effusion. The lung bases and pleural spaces are clear. Liver: The unenhanced liver is normal in size, contour, and attenuation. There is no intrahepatic biliary ductal dilatation. Gallbladder: Unremarkable. Spleen: Normal in size and attenuation. Pancreas: Unremarkable. Adrenal glands: No adrenal masses are visualized. There is a stable left adrenal gland calcification. Kidneys: There is a 3 mm mid pole left renal calculus. There is no hydronephrosis. No ureteral or bladder calculi are visualized. Bowel: There are no transition zones indicate bowel obstruction. There is no acute diverticulitis. The appendix appears normal. Peritoneum: There is no intraperitoneal free air or abdominal ascites. Vasculature: The abdominal aorta is normal in course and caliber. Adenopathy: None. Pelvic viscera: The bladder, and pelvic viscera are unremarkable. Skeletal structures: No destructive osseous lesions are seen. There is a 1 cm subcutaneous nodule within the right back. There is also a small nodular focus within the subcutaneous tissues in the left gluteal region. IMPRESSION: 1. No evidence of bowel obstruction. No evidence of free air 2. Nonobstructing left renal calculus. No ureteral or bladder calculi identified 3. Normal appendix. No evidence of acute diverticulitis. Electronically signed by: Gera Childers M.D. 06/27/2017 6:35 AM Dictated Date/Time: 06/27/2017 6:31 AM
[2017-06-27 06:48] LABS: BUN/CREATININE RATIO 15.1 (10-20); CREATININE 0.95 mg/dl (0.60-1.20); POTASSIUM 3.7 mmol/L (3.5-5.1)
[2017-06-27 07:19] VITALS: BP 106/71; PULSE 79; TEMP 36.8; O2SAT 99
--- NOTE | 2017-06-27 07:24 | Family Medicine Progress Note ---
Progress Note Date of Service Jun 27, 2017.
[2017-06-27] MEDS ORDERED: SERTRALINE HCL 100 MG TAB PO SCH (08:00)
[2017-06-27] MEDS ORDERED: INSULIN GLULISINE 100 UNIT/ML SQ SCH (08:00)
[2017-06-27] MEDS ORDERED: DULOXETINE (CYMBALTA) 30 MG CAP PO SCH (08:00)
[2017-06-27 08:14] VITALS: O2SAT 99
[2017-06-27] MEDS ORDERED: IV FLUIDS COMPLETED PRN (08:15)
[2017-06-27] MEDS ORDERED: CIPR1TAB10 PO (09:29)
--- NOTE | 2017-06-27 09:35 | Discharge Instructions ---
Discharge Instructions Date of Service Jun 27, 2017. Admission Reason for Admission: Failure Of Outpatient Treatment,Rt-Sided Back Pain Discharge Discharge Diagnosis / Problem: Pyelonephritis Discharge Goals Goal(s): Decrease discomfort, Improve function, Increase independence, Improve nutritional status, Learn about illness Activity Recommendations Activity Limitations: per Instructions/Follow-up section . Instructions / Follow-Up Instructions / Follow-Up You have been prescribed Ciprofloxacin for a kidney infection. This medication replaces the Bactrim Antibiotic that you came in on. Please take Ciprofloxacin as prescribed starting tonight and every 12 hours until complete. Information on Ciprofloxacin and Pyelonephritis will be provided to you on discharge. Please read this information carefully. Also please try to drink a lot of water in the next few days. You have also been given contact information for [facility] ([facility]) services which helps individuals dealing with mental illness. Please call this number to arrange an appointment with a therapist or to receive other services provided by them. You can continue taking all of your other home medications as prescribed except Bactrim Current Hospital Diet Patient's current hospital diet: Diabetes Type 1 Diet Discharge Diet Recommended Diet: Regular Diet Pending Studies Studies pending at discharge: yes List of pending studies: Final Urine and Blood Culture Results. Medical Emergencies . Who to Call and When: Medical Emergencies: If at any time you feel your situation is an emergency, please call 911 immediately. . Non-Emergent Contact Non-Emergency issues call your: Primary Care Provider . . "Provider Documentation" section prepared by Herbert Sheets. . VTE Core Measure Inpt VTE Proph given/why not?: SCD's Resident Involvement: Resident Care Provided Care Provided: Adult Hospital Medicine
--- NOTE | 2017-06-27 09:46 | Discharge Summary ---
Discharge Summary Date of Service Jun 27, 2017. Discharge Summary Admission Date: Jun 27, 2017 at 01:26 Discharge Date: Jun 27, 2017 Discharge Disposition: Home Principal Diagnosis: Pyelonephritis Immunizations: Have You Had Influenza Vaccine: No History of Tetanus Vaccine?: Unknown History of Pneumococcal: No History of Hepatitis B Vaccine: Yes Procedures: CT SCAN OF THE ABDOMEN AND PELVIS WITHOUT CONTRAST CLINICAL HISTORY: bilateral flank pain, UTI, h/o stones COMPARISON STUDY: 11/28/2011 TECHNIQUE: CT scan of the abdomen and pelvis was performed from the lung bases to the proximal femurs. Images are reviewed in the axial, sagittal, and coronal planes. IV contrast was not administered for this examination. A dose lowering technique was utilized adhering to the principles of ALARA. CT DOSE: 1671.47 mGy.cm FINDINGS: Lower chest: The heart is normal in size and configuration, without pericardial effusion. The lung bases and pleural spaces are clear. Liver: The unenhanced liver is normal in size, contour, and attenuation. There is no intrahepatic biliary ductal dilatation. Gallbladder: Unremarkable. Spleen: Normal in size and attenuation. Pancreas: Unremarkable. Adrenal glands: No adrenal masses are visualized. There is a stable left adrenal gland calcification. Kidneys: There is a 3 mm mid pole left renal calculus. There is no hydronephrosis. No ureteral or bladder calculi are visualized. Bowel: There are no transition zones indicate bowel obstruction. There is no acute diverticulitis. The appendix appears normal. Peritoneum: There is no intraperitoneal free air or abdominal ascites. Vasculature: The abdominal aorta is normal in course and caliber. Adenopathy: None. Pelvic viscera: The bladder, and pelvic viscera are unremarkable. Skeletal structures: No destructive osseous lesions are seen. There is a 1 cm subcutaneous nodule within the right back. There is also a small nodular focus within the subcutaneous tissues in the left gluteal region. IMPRESSION: 1. No evidence of bowel obstruction. No evidence of free air 2. Nonobstructing left renal calculus. No ureteral or bladder calculi identified 3. Normal appendix. No evidence of acute diverticulitis. Medication Reconciliation New Medications: Ciprofloxacin Hcl (Cipro) 500 Mg Tab 1 TAB PO BID for 9 Days, #18 TAB Continued Medications: Duloxetine HCl (Duloxetine HCl) 30 Mg Cap 30 MG PO DAILY Hydroxyzine HCl (Hydroxyzine HCl) 25 Mg Tab 25 MG PO Q8 Ibuprofen (Advil) 200 Mg Tab 400 MG PO TID PRN for Headache or Pain, TAB Insulin Glulisine (Apidra Solostar) 100 Units/Ml Inj 12 UNITS PO TIDM Medroxyprogesterone Acetate (C (Medroxyprogesterone Aceta) 150 Mg/Ml Inj INJ UD Phenazopyridine HCl (Pyridium) 200 Mg Tab 200 MG PO TID for 2 Days, #6 TAB Sertraline HCl (Sertraline HCl) 100 Mg Tab 200 MG PO DAILY Discontinued Medications: Sulfa/Trimethoprim (Bactrim Ds 800MG/160MG) Tab 1 TAB PO BID for 7 Days, #14 TAB Discharge Exam Patient was seen and examined at bedside. She was doing well and tolerated her diet well. Her fiance was in the room. She stated that she felt better. Rated her flank pain as 5/10. She was asking when she would be able to go home. Overnight she was Afebrile. Review of Systems: Constitutional: No fever, No chills, No weight loss Respiratory: No cough, No sputum, No wheezing Abdomen: No pain, No nausea, No vomiting, No diarrhea, No constipation Genitourinary - Female: No dysuria, No urinary frequency, No urinary urgency , No vaginal bleeding Endocrine: No fatigue Physical Exam: General Appearance: WD/WN, no apparent distress Eyes: PERRL, EOMI Respiratory/Chest: chest non-tender, lungs clear, normal breath sounds, no respiratory distress, no accessory muscle use Cardiovascular: regular rate, rhythm, no edema, no gallop, no JVD, no murmur , normal peripheral pulses Abdomen / GI: normal bowel sounds, non tender, soft, no organomegaly, + pertinent finding (Pt had mild to moderate left sided CVA tenderness. No right sided tenderness. 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 ) Hospital Course 27F with a PMHx of Necrotizing Fasciitis that had to be on Dialysis, DM1 and bipolar disorder p/w worsening flank pain since yesterday. She was seen in the ER yesterday and given Bactrim for a UTI. Pt symptoms continued and she was admitted for pyelonephritis. In the hospital she was started on IV Rocephin. Urine cultures with sensitivities were available from yesterdays UA - she grew E. Coli sensitive to Macrobid, Cipro, Levoquin and Rocephin and Resistant to Bactrim and Ampicillin. She was discharged on a 9 day course of Ciprofloxacin 500mg PO BID on Day #1 of hospital stay. Since she does not have a PCP she will follow up with Dr Herbert Sheets. Appointment will be arranged for early next week. See below for date. While in the hospital she was also noted to have elevated blood sugars of over 300. In 2014 her HBA1C was 9.5. No evidence of ketoacidosis noted during hospital stay. Upon soliciting patient states that she is only on a short acting insulin Apidra and not on a long acting insulin. Endocrine Follow up was also arranged with [facility]. See below for the date. Patient was also given contact information for [facility] ([facility]) services for management of mental illness. She reports that she does not at present have a Psychiatrist that manages her mental health issues. All other home meds were resumed except Bactrim. FOLLOW UP APPOINTMENTS Dr. Sheets at [facility] on MondayJULY 04 at 1:10 pm. *This office is located in [address] of [facility] next to this [facility]. If you need to change this appointment you can call their office at . Please, follow at [facility]ology Office on MondayJULY 06 at 9:15 am. You will have a 2nd, follow up visit, on MondayJuly 19 at 1:00 pm. *This office is located in [address] of [facility] next to this [facility]. PLEASE, IF YOU CANNOT KEEP THIS APPOINTMENT CALL TO RESCHEDULE. The office phone number is [phone]." Total Time Spent: Greater than 30 minutes (32 min) This includes examination of the patient, discharge planning, medication reconciliation, and communication with other providers. Discharge Instructions Please refer to the electronic Patient Visit Report (Discharge Instructions) for additional information. Additional Copies To Herbert Sheets M.D. Resident Involvement: Resident Care Provided Care Provided: Adult [facility] Medicine Reviewed: Pt Seen/Exam by Me History back pain resolved no fever overnight Constitutional: denies: fever Respiratory: negative: short of breath Cardiovascular: denies chest pain General Appearance: no apparent distress Respiratory: lungs clear, no respiratory distress Cardiovascular: regular rate, rhythm Gastrointestinal: soft Neurologic/Psychiatric: alert, oriented x 3 Skin Characteristics: warm/dry Assessment/Plan Resident Physician Supervision Note: I independently interviewed and examined the patient and verified the [place] history and physical, reviewed labs and image studies, discussed the case with the resident Dr. Sheets and agree with the findings and care plan.
[2017-06-27 11:53] VITALS: BP 106/71; PULSE 79; TEMP 36.8; O2SAT 99
[2017-06-27 14:11] VITALS: Ht 157.5 cm; Wt 80.0 kg
[2017-06-28] MEDS ORDERED: CEFTRIAXONE SOD INJ 1 GM in DEXTROSE 5% ADD-VANTAGE 50ML 50 ML IV SCH (01:30)
== END 2017-06-27 12:22 | disposition home or self-care (01) ==
LOC: C.EDB 22:48 → C.MS4W 06-27 01:26 → CANRESERV 06-27 01:40 → ENRESERV 06-27 01:40
PROVIDERS: ADMIT Hospitalist; ATTEND Family Medicine
DX: N12 Tubulo-interstitial nephritis, not specified as acute or chronic (principal); E10.65 Type 1 diabetes mellitus with hyperglycemia; F31.60 Bipolar disorder, current episode mixed, unspecified; F17.200 Nicotine dependence, unspecified, uncomplicated; Z79.4 Long term (current) use of insulin; Z79.899 Other long term (current) drug therapy; Z87.442 Personal history of urinary calculi

== ENCOUNTER 2017-08-13 17:22 | Emergency (ER) | payer OTHER ==
[~2017-08-13] VITALS: Ht 157.5 cm; Wt 77.7 kg
[~2017-08-13 17:22] MED LIST changes: -PHEN-876 PO; -SULF800T23 PO
[2017-08-13 17:36] VITALS: BP 140/87; PULSE 111; TEMP 36.8; O2SAT 99; Ht 157.5 cm; Wt 77.7 kg
[2017-08-13] MEDS ORDERED: PNC/500 PO (17:51)
[2017-08-13] MEDS ORDERED: PENI-82 PO (17:57)
[2017-08-13] MEDS ORDERED: PENICILLIN HOME PACK 500MG (4 DOSES)BTL PO ONE (18:00)
--- NOTE | 2017-08-14 17:01 | EMERGENCY ROOM VISIT NOTE ---
ED Visit Note First contact with patient: 17:42 CHIEF COMPLAINT: Toothache HISTORY OF PRESENT ILLNESS: This 27 year old female patient presented to the emergency department with a progressive toothache for past 3-4 days. The patient believes it is coming from the right upper molar. The pain is now steady and severe and radiates to the face. The patient reportedly has a dentist appointment set up next week. They rate their pain a 8/10 and the ibuprofen and Tylenol they have been taking has not relieved the pain. Denies facial swelling or fever. The patient denies any discharge from the mouth. REVIEW OF SYSTEMS: A 6 system review of systems was completed with positives and pertinent negatives listed in the HPI. ALLERGIES: Erythromycin, NSAIDs, tramadol MEDICATIONS: See EMR PMH: See EMR SOCIAL HISTORY: Lives locally PHYSICAL EXAM: Vitals are noted on the nurse's note and reviewed by myself. Vital signs stable. GENERAL: White female, in no acute distress, nondiaphoretic, well-developed well -nourished. Mouth: The right upper second molar tooth is very carious and the gum is swollen and tender around it, without any discharge or signs of an abscess. The remainder of the pharynx and tonsils are without erythema, edema, or exudate. The airway is patent. There is no facial swelling, cervical or submandibular lymphadenopathy. The patient appears uncomfortable and in pain. The patient has overall fair dental hygiene. EARS: External auditory canals clear, tympanic membranes pearly boucher without erythema or effusion bilaterally. HEART: Regular rate and rhythm without murmur gallop or rub LUNG: Clear to auscultation bilateral ED COURSE: Physical exam and history were performed. Nursing notes and EMR were reviewed. The patient presented dental pain for the past few days. She does not have evidence of obvious abscess or Luis Alfredo's. She will be given a course of Pen-Vee K and asked to follow with her dentist as scheduled. She was otherwise invited back to the ER with any new, worsening, or concerning symptoms. Problem List Medical Problems: (1) BIPOL I, MOST RECENT EPISODE (OR CURRENT) MIXED, UNSPECIFIED Status: Chronic (2) CALCULUS OF KIDNEY Status: Chronic (3) DIAB W OTH SPEC MANIFEST, TYPE II OR UNSPEC TYPE, NOT UNCNTR Status: Chronic (4) FAM HX-DIABETES MELLITUS Status: Chronic (5) FAMILY HISTORY OF OTHER CARDIOVASCULAR DISEASES Status: Chronic (6) Sinusitis, maxillary, chronic Status: Chronic (7) TOBACCO USE DISORDER Status: Chronic Current/Historical Medications Scheduled Insulin Glulisine (Apidra Solostar), UNITS PO TIDM Medroxyprogesterone Acetate (C (Medroxyprogesterone Aceta), INJ UD Penicillin V Potassium (Veetids), 500 MG PO QID Sertraline HCl (Sertraline HCl), 200 MG PO DAILY Allergies Coded Allergies: NSAIDs (Unverified Allergy, Severe, KIDNEY FAILURE-CANNOT TAKE, 08/13/17) Tramadol (Verified Adverse Reaction, Mild, GI SYMPTOMS, 08/13/17) Erythromycin (Verified Adverse Reaction, Unknown, VOMITING, 08/13/17) Vital Signs Date Time Temp Pulse Resp B/P (MAP) Pulse Ox O2 Delivery O2 Flow Rate FiO2 08/13/17 17:36 36.8 111 16 140/87 99 Room Air Medications Administered Medications (Trade) Dose Ordered Sig/Unique Route Start Time Stop Time Status Last Admin Dose Admin Penicillin V Potassium (Pen-Vk 500MG Home Pack) 1 homepack UD ONCE PO 08/13/17 18:00 08/13/17 18:01 DC 08/13/17 18:00 1 HOMEPACK Departure Information Impression Primary Impression: Pain, dental Dispostion Home / Self-Care Condition FAIR Prescriptions Penicillin V Potassium (Veetids) 500 Mg Tab 500 MG PO QID for 10 Days, #40 TAB Prov: Chi Lamar PA-C 08/13/17 Forms HOME CARE DOCUMENTATION FORM, IMPORTANT VISIT INFORMATION Patient Instructions My [facility] Additional Instructions You were seen and evaluated today on an emergency basis only. This is not a substitute for, or an effort to provide, complete comprehensive medical care. It is not possible to recognize and treat all injuries or illnesses in a single emergency department visit. For this reason it is recommended that you followup with your dentist as scheduled for definitive care. Take Pen-Vee K 500 mg 4 times daily for the next 10 days. Emergency Department is not able to prescribe pain medication for dental- related complaints. These services can be provided by her primary care physician or your dentist. You are welcome to return to the emergency department anytime with new, worsening, or concerning symptoms.
== END 2017-08-13 18:09 | disposition home or self-care (01) ==
LOC: C.EDB 17:22 → C.EDD 18:09
DX: K08.89 Other specified disorders of teeth and supporting structures (principal); E11.9 Type 2 diabetes mellitus without complications; Z87.442 Personal history of urinary calculi; Z72.0 Tobacco use; Z83.3 Family history of diabetes mellitus; Z82.49 Family history of ischemic heart disease and other diseases of the circulatory system; Z79.4 Long term (current) use of insulin